=== PATIENT | male | born 1955 | race Caucasian/White ===

== ENCOUNTER → 2019-02-10 | Outpatient (CLI) | payer MEDICARE, OTHER ==
--- NOTE | 2019-02-10 12:30 | MR ---
EXAMINATION TYPE: MR knee LT wo con DATE OF EXAM: 02/10/2019 COMPARISON: Plain film 01/27/2019 HISTORY: L knee pain TECHNIQUE: Multiplanar, multisequence imaging of the knee is performed without IV contrast. FINDINGS: Small ossific density medial to the patella is noted as on plain film, no focal edema to brenner ggest acute fracture at this level. MEDIAL MENISCUS: Stellate increased signal in the posterior horn of the medial meniscus indicates men iscal tear LATERAL MENISCUS: There is some linear increased signal at the posterior horn of the lateral meniscus which could possibly extend to the articular surface, sagittal image #12 CRUCIATE LIGAMENTS: The anterior and posterior cruciate ligaments are intact and unremarkable. COLLATERAL LIGAMENTS: T2 bright signal coursing along the medial collateral ligament may be indicativ e of sprain, popliteus tendon shows some increased signal suggestive of tendinosis, there is some ass ociated thickening EXTENSOR MECHANISM: Visualized quadriceps and patellar tendons are intact. EFFUSION: Small joint effusion is noted. POPLITEAL CYST: Minimal semimembranosus gastric TRICOMPARTMENT SPACES: Joint space loss present especially at the patellofemoral joint, lesser extent medial compartment CARTILAGE: There is grade 3 to grade IV chondromalacia posterior patella as well as medial femoral co ndyle, grade 2 to grade III chondromalacia lateral compartment BONE MARROW SIGNAL: Subchondral marrow signal change proximal tibia medially may be reactive, some li near low signal however could be indicative of some associated microtrabecular fracture. Some probabl e reactive marrow signal change present along the intercondylar distal femur extending to the left fe moral condyle anteriorly. OTHER: There is some subcutaneous edema. . IMPRESSION: Tears of the posterior horns of the medial and lateral meniscus. Osteoarthritis. Possible bone contus ion or reactive marrow signal change. Small joint effusion. Additional findings above.
== END | disposition home or self-care (01) ==
LOC: RADMRIMAIN 08:31
PROVIDERS: ATTEND Orthopaedic Surgery
DX: M17.12 Unilateral primary osteoarthritis, left knee (principal); S83.282A Other tear of lateral meniscus, current injury, left knee, initial encounter; S83.242A Other tear of medial meniscus, current injury, left knee, initial encounter; M22.42 Chondromalacia patellae, left knee

== ENCOUNTER → 2019-02-13 | Outpatient (CLI) | payer MEDICARE, OTHER ==
[2019-02-13 10:41] LABS: Basophils % (A) 0 %; Eosinophils # (A) 0.2 k/uL (0-0.7); Eosinophils % (A) 3 %; HCT 40.2 % (39.0-53.0); HGB 13.7 gm/dL (13.0-17.5); Lymphocytes # (A) 1.3 k/uL (1.0-4.8); Lymphocytes % (A) 17 %; MCH 30.3 pg (25.0-35.0); MCHC 34.2 g/dL (31.0-37.0); MCV 88.6 fL (80.0-100.0); Monocytes # (A) 0.5 k/uL (0-1.0); Monocytes % (A) 6 %; Neutrophils # (A) 5.4 k/uL (1.3-7.7); Neutrophils % (A) 72 %; Platelet Count 240 k/uL (150-450); RBC 4.53 m/uL (4.30-5.90); RDW 14.5 % (11.5-15.5); WBC 7.4 k/uL (3.8-10.6)
== END ==
LOC: LABPAT 09:09
PROVIDERS: ATTEND Orthopaedic Surgery
DX: Z01.818 Encounter for other preprocedural examination (principal); Z01.812 Encounter for preprocedural laboratory examination; M23.92 Unspecified internal derangement of left knee
CPT/HCPCS: 85025; 93005

== ENCOUNTER 2019-03-02 13:30 | Day surgery (SDC) | payer MEDICARE, OTHER ==
[2019-02-23 15:56] VITALS: BMI 35.2
--- NOTE | 2019-03-01 15:32 | HP ---
HISTORY AND PHYSICAL REASON FOR ADMISSION: Surgery scheduled for 03/02/2019 Chip Birmingham is a 63-year-old patient seen with progressive left knee pain. We discussed options for treatment. He elected to proceed with left knee arthroscopy. Consent was obtained. PAST MEDICAL HISTORY: Hypertension, [id number]-[id number] diabetes, hypothyroidism, hyperlipidemia. PAST SURGICAL HISTORY: Cholecystectomy, herniorrhaphy, knee arthroscopy, vasectomy. MEDICATIONS: Colchicine, lisinopril, metformin, metoprolol, simvastatin, allopurinol. ALLERGIES: HYDROCHLOROTHIAZIDE AND TETRACYCLINE. SOCIAL HISTORY: Denies current tobacco use. PHYSICAL EXAMINATION: Evaluation of the left knee is range of motion 0-120. Mild effusion. Tenderness along the medial and lateral joint lines. Positive medial Cortney's. Positive lateral Cortney's. Ligaments are stable. Hip rotation is without pain. Distal neurovascular exam is intact. RADIOGRAPHS: Radiographs of the left knee revealed moderate osteoarthritis. MRI left knee revealed medial and lateral meniscal tears as well as osteoarthritic changes. IMPRESSION: 1. Internal derangement, left knee with medial and lateral meniscal tears. 2. Hypertension. 3. Hyperlipidemia. 4. Obv-[id number] diabetes. PLAN: Left knee arthroscopy with partial meniscectomy and debridement. Surgery scheduled for 03/02/2019. MMODL / IJN: [id number] /
[~2019-03-02 13:30] MED LIST: HYDROmorphone 0.5 MG/0.5 ML SYRINGE IVP PRN; LACTATED RINGERS 1,000 ML IV SCH; LIDOCAINE 1% 20 ML VIAL (10MG/ML) FOR IV START INTRADERMA PRN; ONDANSETRON 4 MG/2 ML VIAL IVP ONE
[2019-03-02 14:04] LABS: Glucose,Whole Blood 106 mg/dL (75-99)
[2019-03-02] MEDS ORDERED: DEXAMETHASONE SOD PHOSPHATE 10 MG/ML 1 ML VIAL IV ONE (14:18)
[2019-03-02] MEDS ORDERED: LIDOCAINE 1% INJ 10MG/ML (20 ML MDV) ONE (15:22)
[2019-03-02] MEDS ORDERED: MIDAZOLAM 2 MG/2 ML VIAL ONE (15:22)
[2019-03-02] MEDS ORDERED: PROPOFOL 10 MG/ML 20 ML VIAL IV ONE (15:22)
[2019-03-02] MEDS ORDERED: fentaNYL (PF) 50 MCG/ML 2 ML AMP ONE (15:22)
[2019-03-02] MEDS ORDERED: SUCCINYLCHOLINE CHLORIDE VIAL 200 MG/10 ML VIAL IV ONE (15:22)
--- NOTE | 2019-03-02 16:04 | P.OP ---
Date of Procedure: 03/02/19 Preoperative Diagnosis: Internal derangement left knee Postoperative Diagnosis: 1. Tear medial meniscus left knee 2. Grade 4 chondromalacia medial femoral condyle left knee 3. Grade 3 chondromalacia lateral femoral condyle left knee 4. Reactive synovitis medial, lateral and suprapatellar compartments left knee Procedure(s) Performed: 1. Arthroscopic partial medial meniscectomy left knee 2. Arthroscopic chondroplasty medial femoral condyle left knee 3. Arthroscopic microfracture medial femoral condyle left knee 4. Arthroscopic chondroplasty lateral femoral condyle left knee 5. Arthroscopic partial synovectomy medial, lateral and suprapatellar compartments left knee Anesthesia: PAMELAA, local Surgeon: Alfredo Bueno Estimated Blood Loss (ml): 5 Pathology: none sent Condition: stable Disposition: PACU Indications for Procedure: 63-year-old patient seen with progressive left knee pain. After treatment options were discussed, he elected to proceed with arthroscopy. Operative Findings: See description of procedure Description of Procedure: Patient was taken to the operative suite. Patient underwent a general anesthetic by the department of anesthesia. Patient was given preoperative antibiotics. The left lower extremity was placed in a well-padded arthroscopic leg courtney. The left leg was prepped and draped in the normal sterile orthopedic fashion. A lateral parapatellar and suprapatellar incision was made. Trochars were inserted. Arthroscopy was initiated. Suprapatellar pouch revealed diffuse thick reactive synovitis. The patellofemoral joint appeared to articulate congruently. There's grade 3 chondromalacia but no osteochondral flap tears were present. The scope was guided into the medial gutter. No loose bodies or plica were identified. The scope was then guided into the medial compartment. A medial parapatellar incision was made. Trocar inserted followed by probe. There was a radial tear posterior horn medial meniscus. There were grade 4 chondromalacia changes medial femoral condyle with osteochondral flap tears present. There was thick reactive synovitis anteriorly. I performed a partial medial meniscectomy. I performed a chondroplasty medial femoral condyle. I performed a partial synovectomy decompressing the reactive synovitis. The residual meniscus was stable. There was good decompression of synovitis. There was nearly exposed bone medial femoral condyle. I performed a microfracture to area. A penetrator the bone with resultant bleeding at the microfracture site. The peripheral osteochondral surface remained stable after microfracture. Scope and probe were then guided into the intercondylar notch. Cruciates were identified, probed and found to be stable. The scope and probe were then guided into lateral compartment. There was some mild superficial fraying midbody lateral meniscus. There were grade 3 chondromalacia changes lateral femoral condyle with some large osteochondral flap tears present. There was thick reactive synovitis anteriorly. I performed a chondroplasty lateral femoral condyle. I debrided that mild superficial fraying of the meniscus. I performed a partial synovectomy decompressing reactive synovitis. The residual osteochondral surface was stable. There was good decompression of synovitis. The scope was in guided back into the suprapatellar compartment. I introduced a motorized shaver into the suprapatellar compartment. I debrided some piecemeal fragments of meniscus I encountered. I performed a partial synovectomy decompressing reactive synovitis. The shaver was removed. There was good decom pression of synovitis. I took one more look on the entire knee, no residual debris. Instruments were now removed from the joint. The joint was infiltrated with .25% Marcaine. Steri-Strips were applied to the portal sites. Sterile dressings were applied. The patient was placed into a DANILO hose. No tourniquet was utilized. The patient was awakened, transferred to a bed and taken to recovery stable satisfactory condition.
[2019-03-02 16:12] VITALS: TEMP 96.8
[2019-03-02 16:33] LABS: Glucose,Whole Blood 146 mg/dL (75-99)
[2019-03-02 16:46] VITALS: RESP 18
[2019-03-02 17:04] VITALS: BP 148/85; PULSE 72
== END 2019-03-02 17:21 | disposition home or self-care (01) ==
LOC: OR 13:30
PROVIDERS: ATTEND Orthopaedic Surgery
DX: M23.322 Other meniscus derangements, posterior horn of medial meniscus, left knee (principal); M94.262 Chondromalacia, left knee; M65.862 Other synovitis and tenosynovitis, left lower leg; E11.9 Type 2 diabetes mellitus without complications; I10 Essential (primary) hypertension; E03.9 Hypothyroidism, unspecified; E78.5 Hyperlipidemia, unspecified; G47.33 Obstructive sleep apnea (adult) (pediatric); F31.9 Bipolar disorder, unspecified; Z88.8 Allergy status to other drugs, medicaments and biological substances; Z88.1 Allergy status to other antibiotic agents; Z90.49 Acquired absence of other specified parts of digestive tract; Z98.890 Other specified postprocedural states; Z98.52 Vasectomy status; Z79.899 Other long term (current) drug therapy; Z79.84 Long term (current) use of oral hypoglycemic drugs; Z79.891 Long term (current) use of opiate analgesic; Z79.82 Long term (current) use of aspirin; Z97.2 Presence of dental prosthetic device (complete) (partial)
CPT/HCPCS: 29881; 29879; J2250; J0330; J1100; J0690; J2405; J2001; J3010; J2704